=== PATIENT | male | born 1965 | race Caucasian/White ===

== ENCOUNTER → 2020-09-03 | Outpatient (CLI) | payer BC ==
[~2020-09-03] MED LIST: AMOXIL SUS250 MG/5 M PO; FEXOFENADINE-P1 EACH PO; MULTI-VITAMIN1 EACH PO; SINGULAIR10 MG PO; VIT C PO; VIT D PO
== END ==
LOC: ECHO 13:00
DX: R00.0 Tachycardia, unspecified (principal); I27.20 Pulmonary hypertension, unspecified; R93.1 Abnormal findings on diagnostic imaging of heart and coronary circulation; I11.9 Hypertensive heart disease without heart failure; I34.0 Nonrheumatic mitral (valve) insufficiency
CPT/HCPCS: ECHO; 93306

== ENCOUNTER → 2020-09-24 | Outpatient (CLI) | payer BC | LOC: HEART 5 07:38 | DX: R93.1 Abnormal findings on diagnostic imaging of heart and coronary circulation (principal); R94.31 Abnormal electrocardiogram [ECG] [EKG] | CPT/HCPCS: 78452; A9502; J2785 ==

== ENCOUNTER → 2021-05-25 | Outpatient (CLI) | payer BC | LOC: RAD 12:43 | DX: M25.571 Pain in right ankle and joints of right foot (principal); M25.511 Pain in right shoulder | CPT/HCPCS: 73030; 73600; 73650 ==